=== PATIENT | female | born 1985 | race Caucasian/White ===

== ENCOUNTER 2021-05-04 18:55 | Emergency (ER) | payer SELFPAY ==
[2021-05-04 19:18] VITALS: TEMP 98.3; BMI 33.8
[2021-05-04] MEDS ORDERED: SODIUM CHLORIDE 1,000 ML IV STA (20:30)
[2021-05-04] MEDS ORDERED: ACETAMINOPHEN 1000 MG/100 ML BAG IVPB ONE (20:30)
[2021-05-04] MEDS ORDERED: ACETAMINOPHEN INJECTION 100 ML IVPB ONE (20:53)
[2021-05-04 22:36] LABS: BASO % 0.8 % (0-2.0); EOS % 2.8 % (0-4.5); HEMATOCRIT 38.9 % (32.4-45.2); LYMPH % 26.6 % (8-40); MCH 27.1 pg (25.7-33.7); MCHC 33.5 g/dl (32.0-36.0); MEAN CELL VOLUME 80.9 fl (80-96); MEAN PLT VOLUME 9.9 fl (7.5-11.1); MONO % 5.5 % (3.8-10.2); NEUT % 64.3 % (42.8-82.8); PLATELET COUNT 302 10^3/uL (134-434); RBC 4.81 M/mm3 (3.60-5.2); WHITE BLOOD COUNT 10.4 K/mm3 (4.0-10.0)
[2021-05-04 22:42] LABS: URINE APPEARANCE CLEAR; URINE BILIRUBIN NEGATIVE (NEGATIVE); URINE COLOR YELLOW; URINE GLUCOSE (UA) NEGATIVE (NEGATIVE); URINE KETONE NEGATIVE (NEGATIVE); URINE LEUK ESTERASE NEGATIVE (NEGATIVE); URINE NITRITE NEGATIVE (NEGATIVE); URINE PROTEIN NEGATIVE (NEGATIVE)
[2021-05-04 22:45] LABS: HCG,QUALITATIVE URINE Negative
[2021-05-04 22:57] LABS: CALCIUM 8.7 mg/dL (8.5-10.1)
[2021-05-04 22:58] LABS: BLOOD UREA NITROGEN 16.4 mg/dL (7-18)
[2021-05-04 23:00] LABS: CREATININE 0.6 mg/dL (0.55-1.3)
[2021-05-04 23:02] LABS: BILIRUBIN,TOTAL 0.2 mg/dL (0.2-1); TOT PROT 7.8 g/dl (6.4-8.2)
[2021-05-05 01:08] VITALS: BP 122/78; PULSE 81
== END 2021-05-05 01:08 | disposition home or self-care (01) ==
LOC: JER 18:55
PROC: 3E0333Z Introduction of Anti-inflammatory into Peripheral Vein, Percutaneous Approach (ICD-10-PCS; principal; 2021-05-04)
PROC: 3E0337Z Introduction of Electrolytic and Water Balance Substance into Peripheral Vein, Percutaneous Approach (ICD-10-PCS; 2021-05-04)
DX: R10.9 Unspecified abdominal pain (principal)
CPT/HCPCS: 36415; 74177-TC; 76705-TC; 76830-TC; 76856-TC; 80053; 81003; 83690; 84703; 85025; 87086; 99285-25; J0131; Q9967